=== PATIENT | male | born 1980 | race African-American/Black ===

== ENCOUNTER 2023-07-25 01:18 | Emergency (ER) | payer MEDICARE, OTHER ==
[~2023-07-25] VITALS: Ht 182.9 cm; Wt 83.9 kg
[2023-07-25 01:22] VITALS: O2SAT 98
[2023-07-25 06:37] LABS: *BILIRUBIN,URIN NEGATIVE (NEGATIVE); *BLOOD, URINE NEGATIVE (NEGATIVE); *CLARITY,URINE CLEAR (CLEAR); *COLOR,URINE YELLOW (YELLOW); *KETONES,URINE NEGATIVE (NEGATIVE); *PROTEIN,URINE NEGATIVE (NEGATIVE); *UROBILINOGEN,URINE 0.2 E.U./dl (NORMAL); LEUKOCYTE ESTERASE ,URINE NEGATIVE (NEGATIVE); NITRITE, URINE NEGATIVE (NEGATIVE); PH,URINE 5.5 (5.0-8.0); UGLUCOSE NEGATIVE (NEGATIVE)
[2023-07-25 06:44] LABS: *AMPHETAMINE, URINE NEGATIVE (NEGATIVE); *BARBITURATE, URINE NEGATIVE (NEGATIVE); *BENZODIAZEPINE, URINE NEGATIVE (NEGATIVE); *CANNABINOID, URINE NEGATIVE (NEGATIVE); *COCCAINE, URINE NEGATIVE (NEGATIVE); *OPIATE, URINE NEGATIVE (NEGATIVE); *PHENCYCLIDINE SCREEN,URINE NEGATIVE (NEGATIVE)
[2023-07-25 06:45] LABS: FENTANYL, URINE NEGATIVE (NEGATIVE)
[2023-07-25] MEDS ORDERED: BETA15CR4 TP (07:07)
[2023-07-25] MEDS ORDERED: CLOT15CR27 TP (07:07)
[2023-07-25] MEDS ORDERED: TRAM50TA2 PO (07:07)
== END 2023-07-25 08:58 | disposition home or self-care (01) ==
LOC: ER 01:22
DX: S96.812A Strain of other specified muscles and tendons at ankle and foot level, left foot, initial encounter (principal); S96.811A Strain of other specified muscles and tendons at ankle and foot level, right foot, initial encounter; S00.83XA Contusion of other part of head, initial encounter; J45.909 Unspecified asthma, uncomplicated; Z88.1 Allergy status to other antibiotic agents; X58.XXXA Exposure to other specified factors, initial encounter; Y93.89 Activity, other specified; Y92.89 Other specified places as the place of occurrence of the external cause; Y99.8 Other external cause status
CPT/HCPCS: 70450; 73630; A4606; A4663

== ENCOUNTER 2023-08-02 22:26 | Emergency (ER) | payer MEDICARE, OTHER ==
[~2023-08-02] VITALS: Ht 182.9 cm; Wt 79.8 kg
[~2023-08-02 22:26] MED LIST: BETA15CR4 TP; CLOT15CR27 TP; TRAM50TA2 PO
[2023-08-03] MEDS ORDERED: CEPH500T PO (00:20)
[2023-08-03 00:28] VITALS: BP 153/92; O2SAT 95
== END 2023-08-03 00:28 | disposition home or self-care (01) ==
LOC: ER 22:48
DX: B35.3 Tinea pedis (principal); R03.0 Elevated blood-pressure reading, without diagnosis of hypertension; L03.116 Cellulitis of left lower limb; L03.115 Cellulitis of right lower limb; J45.909 Unspecified asthma, uncomplicated; Z76.0 Encounter for issue of repeat prescription; Z79.899 Other long term (current) drug therapy; Z59.00 Homelessness unspecified; Z88.1 Allergy status to other antibiotic agents
CPT/HCPCS: A4606; A4663